=== PATIENT | male | born 1995 | race Caucasian/White ===

== ENCOUNTER 2022-01-20 19:03 | Observation (INO) | payer BC ==
[~2022-01-20] VITALS: Ht 190.5 cm; Wt 115.0 kg
--- NOTE | 2022-01-20 19:15 | NUR ---
A/O M WITH MID ABD PAIN CRAMPING NO N/V HAD I LOOSE GREEN SMELLY BM THIS AM.DENIES DYSURIAS.NO ABD HX,TAKES NO MEDS.ONSET LAST PM.W/P/D SKIN PINK MOIST MM.NORMOACTIVE BOWEL SOUNDS NO REBOUND NO FLANK PAIN.NO LOCAL MD
--- NOTE | 2022-01-20 19:15 | NUR ---
ARRIVED TO ER ACCOMPANIED BY SIGNIFICANT OTHER AMBULATORY CHIEF COMPLAINT ABD PAIN AND LOWER BACK PAIN. ASIGNED TO ROOM 13. ORIENTED TO ROOM ASSESSMENT COMPLETED
[2022-01-20] MEDS ORDERED: OMEPRAZOLE DR40 MG PO (19:46)
[2022-01-20 19:56] LABS: HEMATOCRIT 43.9 % (39.0-50.0); HEMOGLOBIN 14.3 g/dl (14.0-18.0); IMMATURE GRANULOCYTES 0.1 % (0.0-5.0); MEAN CELL VOLUME 84.1 fL CALC (80.0-100.0); MEAN CORPUSCULAR HGB 27.4 pG CALC (26.0-32.0); MEAN CORPUSCULAR HGB CONC 32.6 g/dL CAL (32.0-36.0); NEUT# 12.3 thou/uL (1.82-7.42); RED BLOOD COUNT 5.22 mill/uL (4.70-6.10); RED CELL DISTRI WIDTH 12.5 % (11.5-15.5)
[2022-01-20 19:57] LABS: URINE BILIRUBIN - DIPSTICK NEGATIVE (NEGATIVE); URINE BLOOD DIPSTICK TRACE-INTACT (NEGATIVE); URINE COLOR YELLOW; URINE GLUCOSE - DIPSTICK NEGATIVE (NEGATIVE); URINE KETONE NEGATIVE (NEGATIVE); URINE LEUK ESTERASE NEGATIVE (NEGATIVE); URINE PROTEIN - DIPSTICK NEGATIVE (NEG-TRACE); URINE UROBILINOGEN - DIPSTICK 0.2 E.U./dL (0.2)
[2022-01-20 19:58] LABS: URINE NITRITE - DIPSTICK NEGATIVE (Negative)
[2022-01-20 20:08] LABS: ALBUMIN 4.7 g/dL (3.2-5.0); ALKALINE PHOSPHATASE 67 u/l (38-126); AMYLASE 72 u/l (30-110); ANION GAP 12 (6-22 (CALC)); BILIRUBIN, TOTAL 0.8 mg/dL (0.0-1.4); BUN 9 mg/dL (9-20); BUN/CREATININE RATIO 10 (12-20 (CALC)); CARBON DIOXIDE 28 mmol/l (22-30); CHLORIDE 101 mmol/l (95-108); CREATININE 0.8 mg/dL (0.7-1.3); GFR FOR AFR.AMER. > 60 ML/MIN (>=60 (CALC)); GFR OTHER RACES > 60 ML/MIN (>=60 (CALC)); LIPASE 52 u/l (23-300); POTASSIUM 3.8 mmol/l (3.5-5.1); SGOT/AST 38 u/l (17-59); SODIUM 137 mmol/l (137-146)
--- NOTE | 2022-01-20 20:31 | NUR ---
MEDICATED FOR ABD PAIN PT TOLERATED AND APPEARS ANXIOUS BUT NO NAUSEA.
--- NOTE | 2022-01-20 21:27 | NUR ---
Reassessment of patient completed. No distress noted.
--- NOTE | 2022-01-20 21:49 | NUR ---
DR ELMORE IN TO SPEAK WITH PATIENT ON DIAGNOTIC RESULTS
--- NOTE | 2022-01-20 22:30 | NUR ---
PHONE REPORT TO DAYANA MONDRAGON ON MS
--- NOTE | 2022-01-20 22:35 | NUR ---
PT TRANSPORTED VIA WC IN IMPROVED STABLE CONDITION
--- NOTE | 2022-01-20 22:40 | NUR ---
PT ARRIVED TO [facility] VIA WHEELCHAIR ACCOMPANIED BY ER NURSE, PT AMBULATED TO BED, ORIENTED PT TO ROOM AND CALL LIGHT, DISCUSSED POC. SKIN INTACT, TEDS APPLIED, TEACHING REGARDING INCENTIVE SPIROMETER, TOTAL VOLUME 3000ML. PT NPO, IVF INITIATED TO LAC, ADMISSION ASSESSMENT COMPLETED, CALL LIGHT IN REACH, CONTINUE TO MONITOR.
[2022-01-20 22:46] LABS: PROTHROMBIN TIME 10.4 SECONDS (9.0-12.5)
[2022-01-20 22:47] VITALS: BP 125/89
[2022-01-21 03:42] VITALS: BP 126/79
--- NOTE | 2022-01-21 03:54 | NUR ---
PT C/O PAIN 01/23 MEDICATED PER AUG, ASSISTED PT TO SIT ON SIDE OF BED TO RELIEVE PAIN. RESP EVEN AND UNLABORED. CALL LIGHT IN REACH,CONTINUE TO MONITOR.
[2022-01-21 04:29] VITALS: BP 126/79
[2022-01-21 06:00] VITALS: BP 115/81
--- NOTE | 2022-01-21 07:00 | NUR ---
RECEIVE REPORT FROM GIANCARLO KING.
--- NOTE | 2022-01-21 08:00 | NUR ---
PATIENT ALERT AND ORIENTED X3. PT NOT REFER PAIN AT THIS TIME OR DISCOMFORT. NPO FOR POSSIBLE PROCEDURE. VITAL SIGNS STABLE AT THIS TIME. PT IS EDUCATED ABOUD MEDICATIONS AND NURSING PLAN FOR TODAY. HE REFER UNDERSTAND. FALL AND SAFETY PRECAUTIONS IN PLACE. CALL LIGHT WITHIN REACH.
[2022-01-21] MEDS ORDERED: PERCOCET 5/321 COMBO PO (10:36)
[2022-01-21] MEDS ORDERED: TORADOL PO (10:37)
[2022-01-21] MEDS ORDERED: AMOX/K CLAV875 M1 PO (11:24)
--- NOTE | 2022-01-21 12:22 | NUR ---
PATIENT IN OR.
[2022-01-21 12:24] VITALS: BP 96/48
--- NOTE | 2022-01-21 12:38 | NUR ---
PATIENT RETURNS FROM OR GOING STABLE. THREE INCISIONS IN THE ABDOMEN CLOSED WITH GLUE. NO BLEEDING AT THIS TIME. PATIENT DOES NOT REFER PAIN. REPORT RECEIVE FROM NASRE[facility] SH[facility]TLE HAND'S.
--- NOTE | 2022-01-21 16:00 | NUR ---
PATIENT RESTING IN BED STABLE AT THIS TIME.
--- NOTE | 2022-01-21 17:15 | NUR ---
PATIENT IS DISCHARGED STABLE AT THIS TIME.
== END 2022-01-21 17:13 | disposition home or self-care (01) | DRG 343 ==
LOC: ED 19:03 → ED-I 21:47 → ED 22:11 → MS2 22:12
PROVIDERS: Emergency Medicine; ADMIT Surgery; ATTEND Surgery
PROC: 0DTJ4ZZ Resection of Appendix, Percutaneous Endoscopic Approach (ICD-10-PCS; principal; 2022-01-21)
DX: K35.31 Acute appendicitis with localized peritonitis and gangrene, without perforation (principal); K21.9 Gastro-esophageal reflux disease without esophagitis; F41.0 Panic disorder [episodic paroxysmal anxiety]; Z20.822 Contact with and (suspected) exposure to COVID-19
CPT/HCPCS: G0378; J0131; J1100; Q9967